=== PATIENT | female | born 1950 | race Caucasian/White ===

== ENCOUNTER 2022-11-27 12:43 | Inpatient (IN) | payer OTHER ==
[~2022-11-27] VITALS: Ht 157.5 cm; Wt 70.8 kg
[2022-11-27] MEDS ORDERED: IV NORMAL SALINE 500 ML BAG IV ONE (13:00)
[2022-11-27] MEDS ORDERED: methylPREDNISolone SOD SUCC 125 MG/2 ML VIAL IV ONE (13:00)
[2022-11-27 13:15] LABS: HEMATOCRIT 43.5 % (31.2-41.9); MEAN CORPUSCULAR HEMOGLOBIN 30.7 uug (24.7-32.8); MEAN CORPUSCULAR VOLUME 94.4 fL (75.5-95.3); PLATELET COUNT (AUTO) 396 K/uL (179-408)
[2022-11-27] MEDS ORDERED: QUET25TA PO (13:24)
[2022-11-27] MEDS ORDERED: BUDE0.5A NEB (13:24)
[2022-11-27] MEDS ORDERED: FLUT1BLS IH (13:24)
[2022-11-27] MEDS ORDERED: LEVO75TA7 PO (13:24)
[2022-11-27] MEDS ORDERED: MULT-24 (13:24)
[2022-11-27] MEDS ORDERED: TRAZ-257 PO (13:24)
[2022-11-27] MEDS ORDERED: CARV6.252 PO (13:24)
[2022-11-27] MEDS ORDERED: MAGN400O6 PO (13:24)
[2022-11-27] MEDS ORDERED: MAG355OR18 PO (13:24)
[2022-11-27] MEDS ORDERED: IPRA12.9 INH (13:24)
[2022-11-27] MEDS ORDERED: DIGO125T PO (13:24)
[2022-11-27] MEDS ORDERED: AMIO200T5 PO (13:24)
[2022-11-27] MEDS ORDERED: TRIH2TAB5 PO (13:24)
[2022-11-27] MEDS ORDERED: HYDR-894 PO (13:24)
[2022-11-27] MEDS ORDERED: ACET325C7 PO (13:24)
[2022-11-27] MEDS ORDERED: APIX5TAB4 PO (13:24)
[2022-11-27] MEDS ORDERED: DILT120T2 PO (13:24)
[2022-11-27] MEDS ORDERED: TUBE1VIA TD (13:24)
[2022-11-27] MEDS ORDERED: CALC-261 PO (13:24)
[2022-11-27] MEDS ORDERED: ASPI81TA31 PO (13:24)
[2022-11-27] MEDS ORDERED: ARIP5TAB10 PO (13:24)
[2022-11-27] MEDS ORDERED: FAMO20TA8 PO (13:24)
[2022-11-27] MEDS ORDERED: BISA10SU61 RC (13:24)
[2022-11-27] MEDS ORDERED: INSU100V28 SQ (13:24)
[2022-11-27] MEDS ORDERED: BUPR200T31 PO (13:24)
[2022-11-27] MEDS ORDERED: NA P133E RC (13:24)
[2022-11-27 13:27] LABS: CARBON DIOXIDE 33 mmol/L (21-32); CHLORIDE 97 mmol/L (98-107); POTASSIUM 4.7 mmol/L (3.5-5.1); UREA NITROGEN, BLOOD 16 mg/dL (7-18)
[2022-11-27] MEDS ORDERED: DILTIAZEM HCL 25 MG IV IV ONE (13:30)
[2022-11-27 13:32] LABS: ABG BASE EXCESS 2.4 mmol/L; ABG HCO3 28.4 mmol/L; ABG PCO2 49.4 mmHg (35.0-45.0); ABG PH 7.377 (7.350-7.450); ABG SITE RIGHT RADIAL; ABG TOTAL HEMOGLOBIN 14.1 G/dL (12.0-16.0); COHb 0.8 % (0.5-1.5); MetHb 0.2 % (0.0-1.5); O2Hb 92.9 % (94.0-97.0); VENT MODE BIPAP - 15/5
[2022-11-27 13:35] LABS: GLUCOSE 335 mg/dL (74-106)
[2022-11-27 13:40] LABS: ALANINE AMINOTRANSFERASE 32 U/L (14-59); ALKALINE PHOSPHATASE 114 U/L (50-136); ASPARTATE AMINOTRANSFERASE 17 U/L (15-37); BILIRUBIN,DIRECT 0.1 mg/dL (0.0-0.2); BILIRUBIN,TOTAL 0.4 mg/dL (0.2-1.0); TOTAL PROTEIN, SERUM 7.3 g/dL (6.4-8.2)
[2022-11-27] MEDS ORDERED: CEFEPIME HCL 1 G in IV DEXTROSE 5% 50 ML IV ONE (14:45)
[2022-11-27] MEDS ORDERED: VANCOMYCIN IV 1,000 MG in IV DEXTROSE 5% 250 ML IV ONE (14:45)
[2022-11-27] MEDS ORDERED: VANCOMYCIN IV 200 ML ONE (15:00)
[2022-11-27] MEDS ORDERED: CEFEPIME HCL 1 G VIAL ONE ×2 (15:00→15:12)
[2022-11-27] MEDS ORDERED: CEFTRIAXONE /D5W 50ML IVPB **ER PYXIS IV ONE (15:03)
[2022-11-27] MEDS ORDERED: hydrALAZINE HCL 25 MG TABLET PO PRN (19:30)
[2022-11-27] MEDS ORDERED: MAGNESIUM HYDROXIDE 30 ML LIQUID UDC PO PRN (19:30)
[2022-11-27] MEDS ORDERED: FLEET ENEMA 133 ML BOTTLE RC PRN (19:30)
[2022-11-27] MEDS ORDERED: MAG HYDROX/AL HYDROX/SIMETH 30 ML LIQUID UDC PO PRN (19:30)
[2022-11-27] MEDS ORDERED: IPRATROPIUM BROMIDE 0.5 MG/2.5 ML NEBU NEB PRN (19:45)
[2022-11-27] MEDS ORDERED: methylPREDNISolone SOD SUCC 40 MG/ML VIAL IV ONE (22:00)
[2022-11-27 23:00] VITALS: BP 147/86
[2022-11-28] MEDS: AMIODARONE HCL 200 MG TABLET PO SCH ×3 (01:23→21:33)
[2022-11-28] MEDS: QUETIAPINE FUMARATE 25 MG TABLET PO SCH ×2 (01:24→21:51)
[2022-11-28] MEDS: TRAZODONE 100 MG TABLET PO SCH ×2 (01:24→21:37)
[2022-11-28] MEDS ORDERED: methylPREDNISolone SOD SUCC 40 MG/ML VIAL IV ONE (01:30)
[2022-11-28 04:50] VITALS: BP 99/65
[2022-11-28] MEDS ORDERED: REMEDY ESSENTIAL ZINC PASTE 113 GM TOP PRN (06:45)
[2022-11-28 08:14] LABS: HEMATOCRIT 37.4 % (31.2-41.9); MEAN CORPUSCULAR HEMOGLOBIN 31.2 uug (24.7-32.8); MEAN CORPUSCULAR VOLUME 93.7 fL (75.5-95.3); PLATELET COUNT (AUTO) 312 K/uL (179-408)
[2022-11-28] MEDS: buPROPion SR 100 MG TABLET.SA PO SCH ×2 (08:20→21:33)
[2022-11-28] MEDS: ASPIRIN 81 MG TAB.CHEW PO SCH (08:20)
[2022-11-28 08:21] LABS: THYROID STIMULATING HORMONE 1.512 mIU/mL (0.358-3.740)
[2022-11-28] MEDS: ARIPIPRAZOLE 5 MG TABLET PO SCH (08:21)
[2022-11-28] MEDS: DIGOXIN 125 MCG TABLET PO SCH (08:21)
[2022-11-28] MEDS: LEVOTHYROXINE SODIUM 75 MCG TABLET PO SCH (08:22)
[2022-11-28] MEDS: APIXABAN 5 MG TABLET PO SCH ×2 (08:22→21:36)
[2022-11-28 08:32] LABS: ALANINE AMINOTRANSFERASE 21 U/L (14-59); ALKALINE PHOSPHATASE 86 U/L (50-136); ASPARTATE AMINOTRANSFERASE 11 U/L (15-37); BILIRUBIN,TOTAL 0.4 mg/dL (0.2-1.0); CARBON DIOXIDE 31 mmol/L (21-32); CHLORIDE 100 mmol/L (98-107); CHOLESTEROL 119 mg/dL (<200); CREATININE 0.8 mg/dL (0.6-1.3); HDL CHOLESTEROL 47 mg/dL (40-60); PHOSPHOROUS 3.3 mg/dL (2.5-4.9); POTASSIUM 4.2 mmol/L (3.5-5.1); TOTAL PROTEIN, SERUM 5.7 g/dL (6.4-8.2); TRIGLYCERIDES 71 MG/DL (30-150); UREA NITROGEN, BLOOD 21 mg/dL (7-18)
[2022-11-28 08:39] LABS: GLUCOSE 329 mg/dL (74-106)
[2022-11-28] MEDS: FAMOTIDINE 20 MG TABLET PO SCH ×2 (08:50→16:10)
[2022-11-28] MEDS: CARVEDILOL 6.25 MG TABLET PO SCH ×2 (08:50→16:10)
[2022-11-28] MEDS: REMEDY ESSENTIAL ZINC PASTE 113 GM TOP SCH ×2 (08:51→21:38)
[2022-11-28] MEDS: FLUTICASONE/VILANTEROL 1 EACH BLST.W.DEV IH SCH (08:52)
[2022-11-28] MEDS: DILTIAZEM HCL CD 120 MG CAP.SR.24H PO SCH (08:53)
[2022-11-28 11:45] VITALS: BP 150/66
[2022-11-28] MEDS ORDERED: LORAZEPAM 2 MG/1 ML VIAL IV PRN (13:15)
[2022-11-28 15:49] VITALS: BP 112/53
[2022-11-28 19:50] VITALS: BP 120/61
[2022-11-28] MEDS: DOCUSATE SODIUM 100 MG CAPSULE PO SCH (21:33)
[2022-11-29] VITALS: BP 128/78
[2022-11-29 04:00] VITALS: BP 120/48
[2022-11-29 06:43] LABS: HEMATOCRIT 37.5 % (31.2-41.9); MEAN CORPUSCULAR VOLUME 93.2 fL (75.5-95.3); PLATELET COUNT (AUTO) 302 K/uL (179-408)
[2022-11-29 07:23] LABS: CREATININE 0.9 mg/dL (0.6-1.3); PHOSPHOROUS 3.1 mg/dL (2.5-4.9); POTASSIUM 4.3 mmol/L (3.5-5.1)
[2022-11-29] MEDS: ASPIRIN 81 MG TAB.CHEW PO SCH (08:09)
[2022-11-29] MEDS: ARIPIPRAZOLE 5 MG TABLET PO SCH (08:33)
[2022-11-29] MEDS: DIGOXIN 125 MCG TABLET PO SCH (08:33)
[2022-11-29] MEDS: DILTIAZEM HCL CD 120 MG CAP.SR.24H PO SCH (08:34)
[2022-11-29] MEDS: AMIODARONE HCL 200 MG TABLET PO SCH ×2 (08:34→20:51)
[2022-11-29] MEDS: buPROPion SR 100 MG TABLET.SA PO SCH ×2 (08:34→20:50)
[2022-11-29] MEDS: APIXABAN 5 MG TABLET PO SCH ×2 (08:34→20:51)
[2022-11-29] MEDS: FAMOTIDINE 20 MG TABLET PO SCH ×2 (08:34→16:35)
[2022-11-29] MEDS: CARVEDILOL 6.25 MG TABLET PO SCH ×2 (08:34→16:35)
[2022-11-29] MEDS: REMEDY ESSENTIAL ZINC PASTE 113 GM TOP SCH ×2 (08:35→20:52)
[2022-11-29] MEDS: FLUTICASONE/VILANTEROL 1 EACH BLST.W.DEV IH SCH (08:35)
[2022-11-29] MEDS: LEVOTHYROXINE SODIUM 75 MCG TABLET PO SCH (08:37)
[2022-11-29] MEDS ORDERED: HYDROMORPHONE 1 MG/1 ML DISP.SYRIN IV PRN (09:15)
[2022-11-29] MEDS: QUETIAPINE FUMARATE 25 MG TABLET PO PRN (10:14)
[2022-11-29] MEDS ORDERED: IV NORMAL SALINE 250 ML IV ONE (10:52)
[2022-11-29] MEDS ORDERED: SWABABLE VALVE TRANSFER SET EA MC ONE (10:52)
[2022-11-29] MEDS ORDERED: IOHEXOL 300MG/ML 100 ML INFUS..BTL ONE (10:52)
[2022-11-29 12:00] VITALS: BP 141/82
[2022-11-29 16:00] VITALS: BP 136/76
[2022-11-29 20:00] VITALS: BP 132/57
[2022-11-29] MEDS: DOCUSATE SODIUM 100 MG CAPSULE PO SCH (20:50)
[2022-11-29] MEDS: TRAZODONE 100 MG TABLET PO SCH (20:51)
[2022-11-29] MEDS: QUETIAPINE FUMARATE 25 MG TABLET PO SCH (20:51)
[2022-11-30 04:12] VITALS: BP 112/60
[2022-11-30] MEDS: ACETAMINOPHEN 325 MG TABLET PO PRN (05:35)
[2022-11-30] MEDS ORDERED: DEXTROSE 50% 50 ML DISP.SYRIN IV PRN (08:30)
[2022-11-30] MEDS: ARIPIPRAZOLE 5 MG TABLET PO SCH (08:31)
[2022-11-30] MEDS: DIGOXIN 125 MCG TABLET PO SCH (08:33)
[2022-11-30] MEDS: buPROPion SR 100 MG TABLET.SA PO SCH ×2 (08:33→22:12)
[2022-11-30] MEDS: AMIODARONE HCL 200 MG TABLET PO SCH ×2 (08:34→22:14)
[2022-11-30] MEDS: ASPIRIN 81 MG TAB.CHEW PO SCH (08:34)
[2022-11-30] MEDS: FAMOTIDINE 20 MG TABLET PO SCH ×2 (08:34→16:40)
[2022-11-30] MEDS: DILTIAZEM HCL CD 120 MG CAP.SR.24H PO SCH (08:34)
[2022-11-30] MEDS: CARVEDILOL 6.25 MG TABLET PO SCH ×2 (08:34→16:40)
[2022-11-30] MEDS: APIXABAN 5 MG TABLET PO SCH ×2 (08:36→22:21)
[2022-11-30] MEDS: LEVOTHYROXINE SODIUM 75 MCG TABLET PO SCH (08:44)
[2022-11-30] MEDS ORDERED: BISACODYL 10 MG SUPP.RECT RC ONE (08:45)
[2022-11-30] MEDS: FLUTICASONE/VILANTEROL 1 EACH BLST.W.DEV IH SCH (09:08)
[2022-11-30] MEDS: REMEDY ESSENTIAL ZINC PASTE 113 GM TOP SCH ×2 (09:08→21:00)
[2022-11-30] MEDS: QUETIAPINE FUMARATE 25 MG TABLET PO PRN (09:10)
[2022-11-30] MEDS ORDERED: BUPR100T6 PO (09:51)
[2022-11-30] MEDS ORDERED: DILT-2 PO (09:51)
[2022-11-30] MEDS ORDERED: MULT-1045 PO (09:51)
[2022-11-30] MEDS ORDERED: DULO60CA45 PO (09:54)
[2022-11-30] MEDS ORDERED: LEVALBUTEROL HCL NEB 0.63 MG/3 ML NEBU NEB PRN (10:30)
[2022-11-30] MEDS ORDERED: IPRATROPIUM BROMIDE 0.5 MG/2.5 ML NEBU NEB PRN (10:30)
[2022-11-30] MEDS ORDERED: FUROSEMIDE 40 MG/4 ML VIAL IV ONE (10:30)
[2022-11-30 10:58] LABS: ABG BASE EXCESS 4.5 mmol/L; ABG HCO3 31.8 mmol/L; ABG PCO2 58.7 mmHg (35.0-45.0); ABG PH 7.351 (7.350-7.450); ABG PO2 61.2 mmHg (75.0-100.0); ABG SITE LEFT RADIAL; ABG TOTAL HEMOGLOBIN 13.8 G/dL (12.0-16.0); COHb 0.9 % (0.5-1.5); MetHb 0.1 % (0.0-1.5); O2Hb 90.8 % (94.0-97.0); VENT MODE Nasal Cannula
[2022-11-30] MEDS ORDERED: ALBUTEROL SULFATE 1.25 MG/3 ML NEBU NEB PRN (11:00)
[2022-11-30 11:37] VITALS: BP 141/53
[2022-11-30] MEDS: methylPREDNISolone SOD SUCC 40 MG/ML VIAL IV SCH ×3 (12:26→22:21)
[2022-11-30] MEDS: DULOXETINE 60 MG CAPSULE.DR PO SCH (12:26)
[2022-11-30] MEDS: BLOOD SUGAR DIAGNOSTIC 1 EACH STRIP VI SCH ×3 (12:38→21:00)
[2022-11-30] MEDS: INSULIN REGULAR, HUMAN 300 UNIT/3 ML VIAL SQ PRN ×2 (13:37→16:36)
[2022-11-30 15:46] VITALS: BP 108/60
[2022-11-30 20:00] VITALS: BP 116/52
[2022-11-30] MEDS ORDERED: SENNOSIDES 1 TABLET PO SCH (21:00)
[2022-11-30] MEDS: QUETIAPINE FUMARATE 25 MG TABLET PO SCH (22:12)
[2022-11-30] MEDS: TRAZODONE 100 MG TABLET PO SCH (22:13)
[2022-11-30] MEDS: DOCUSATE SODIUM 100 MG CAPSULE PO SCH (22:13)
[2022-12-01] VITALS: BP 121/67
[2022-12-01] MEDS: INSULIN REGULAR, HUMAN 300 UNIT/3 ML VIAL SQ PRN (02:58)
[2022-12-01 04:00] VITALS: BP 104/59
[2022-12-01] MEDS: BLOOD SUGAR DIAGNOSTIC 1 EACH STRIP VI SCH ×3 (06:08→16:30)
[2022-12-01] MEDS: methylPREDNISolone SOD SUCC 40 MG/ML VIAL IV SCH (06:08)
[2022-12-01 06:40] LABS: HEMATOCRIT 38.6 % (31.2-41.9); MEAN CORPUSCULAR HEMOGLOBIN 30.5 uug (24.7-32.8); MEAN CORPUSCULAR VOLUME 92.9 fL (75.5-95.3); PLATELET COUNT (AUTO) 265 K/uL (179-408)
[2022-12-01 07:11] LABS: CARBON DIOXIDE 36 mmol/L (21-32); CHLORIDE 100 mmol/L (98-107); CREATININE 0.8 mg/dL (0.6-1.3); GLUCOSE 243 mg/dL (74-106); POTASSIUM 4.1 mmol/L (3.5-5.1); UREA NITROGEN, BLOOD 14 mg/dL (7-18)
[2022-12-01 09:28] LABS: MAGNESIUM 2.2 mg/dL (1.8-2.4); PHOSPHOROUS 3.5 mg/dL (2.5-4.9)
[2022-12-01] MEDS: DILTIAZEM HCL CD 120 MG CAP.SR.24H PO SCH (09:53)
[2022-12-01] MEDS: APIXABAN 5 MG TABLET PO SCH (09:53)
[2022-12-01] MEDS: FAMOTIDINE 20 MG TABLET PO SCH ×2 (09:53→17:00)
[2022-12-01] MEDS: buPROPion SR 100 MG TABLET.SA PO SCH (09:53)
[2022-12-01] MEDS: DULOXETINE 60 MG CAPSULE.DR PO SCH (09:53)
[2022-12-01] MEDS: AMIODARONE HCL 200 MG TABLET PO SCH (09:54)
[2022-12-01] MEDS: DIGOXIN 125 MCG TABLET PO SCH (09:54)
[2022-12-01] MEDS: CARVEDILOL 6.25 MG TABLET PO SCH ×2 (09:54→17:00)
[2022-12-01] MEDS: LEVOTHYROXINE SODIUM 75 MCG TABLET PO SCH (09:54)
[2022-12-01] MEDS: ARIPIPRAZOLE 5 MG TABLET PO SCH (09:54)
[2022-12-01] MEDS: ASPIRIN 81 MG TAB.CHEW PO SCH (09:54)
[2022-12-01] MEDS: FLUTICASONE/VILANTEROL 1 EACH BLST.W.DEV IH SCH (09:55)
[2022-12-01] MEDS: REMEDY ESSENTIAL ZINC PASTE 113 GM TOP SCH (09:56)
[2022-12-01] MEDS ORDERED: ACETAzolamide SODIUM 500 MG VIAL IV SCH (11:30)
[2022-12-01 11:42] VITALS: BP 144/63
[2022-12-01] MEDS: QUETIAPINE FUMARATE 25 MG TABLET PO PRN (12:56)
[2022-12-01] MEDS: ACETAMINOPHEN 325 MG TABLET PO PRN (12:56)
[2022-12-01 16:42] VITALS: BP 98/52
[2022-12-01] MEDS ORDERED: methylPREDNISolone SOD SUCC 40 MG/ML VIAL IV SCH (21:00)
== END 2022-12-01 18:25 | DRG 189 ==
LOC: ER 12:43 → TELE3 22:22
PROVIDERS: ADMIT Internal Medicine; ATTEND Internal Medicine
PROC: 5A09357 Assistance with Respiratory Ventilation, Less than 24 Consecutive Hours, Continuous Positive Airway Pressure (ICD-10-PCS; 2022-11-27)
PROC: 05HY33Z Insertion of Infusion Device into Upper Vein, Percutaneous Approach (ICD-10-PCS; principal; 2022-11-29)
DX: J96.21 Acute and chronic respiratory failure with hypoxia (principal); J18.9 Pneumonia, unspecified organism; I50.43 Acute on chronic combined systolic (congestive) and diastolic (congestive) heart failure; I13.0 Hypertensive heart and chronic kidney disease with heart failure and stage 1 through stage 4 chronic kidney disease, or unspecified chronic kidney disease; I48.20 Chronic atrial fibrillation, unspecified; F02.84 Dementia in other diseases classified elsewhere, unspecified severity, with anxiety; D68.59 Other primary thrombophilia; J98.11 Atelectasis; J96.22 Acute and chronic respiratory failure with hypercapnia; J43.2 Centrilobular emphysema; I48.91 Unspecified atrial fibrillation; I11.0 Hypertensive heart disease with heart failure; J84.10 Pulmonary fibrosis, unspecified; F32.9 Major depressive disorder, single episode, unspecified; I44.7 Left bundle-branch block, unspecified; K21.9 Gastro-esophageal reflux disease without esophagitis; K59.00 Constipation, unspecified; D35.02 Benign neoplasm of left adrenal gland; D35.01 Benign neoplasm of right adrenal gland; Z79.01 Long term (current) use of anticoagulants; I34.0 Nonrheumatic mitral (valve) insufficiency; E11.22 Type 2 diabetes mellitus with diabetic chronic kidney disease; N18.9 Chronic kidney disease, unspecified; Z99.81 Dependence on supplemental oxygen; I27.21 Secondary pulmonary arterial hypertension; G20 Parkinson's disease; E78.5 Hyperlipidemia, unspecified; E66.9 Obesity, unspecified; Z68.28 Body mass index [BMI] 28.0-28.9, adult; E03.9 Hypothyroidism, unspecified; E11.65 Type 2 diabetes mellitus with hyperglycemia; Z74.09 Other reduced mobility; Z20.822 Contact with and (suspected) exposure to COVID-19; Z87.891 Personal history of nicotine dependence; Z88.5 Allergy status to narcotic agent; Z91.013 Allergy to seafood; Z79.890 Hormone replacement therapy; Z79.899 Other long term (current) drug therapy; Z79.4 Long term (current) use of insulin
CPT/HCPCS: 36415; 36600; 71045; 71260; 82803; 83735; 84100; 84443; 84484; 85025; 87040; 93005; 93307; 94660; 94664; G0378; J0692; J0696; J1120; J1815; J1940; J2060; J2920; J2930; J3370; J3490; J3590; J7040; J7050; Q9967